=== PATIENT | male | born 1985 | race Caucasian/White ===

== ENCOUNTER 2016-12-05 15:21 | Emergency (ER) | payer SELFPAY ==
[~2016-12-05] VITALS: Ht 182.9 cm; Wt 85.3 kg
[2016-12-05] MEDS ORDERED: IBUPROFEN 600MG TABLET PO ONE (23:30)
[2016-12-06] VITALS: BP 132/90
== END 2016-12-06 | disposition home or self-care (01) ==
LOC: ER 20:45
DX: J33.9 Nasal polyp, unspecified (principal); F17.210 Nicotine dependence, cigarettes, uncomplicated
CPT/HCPCS: 99283

== ENCOUNTER 2016-12-25 07:33 | Emergency (ER) | payer SELFPAY ==
[~2016-12-25] VITALS: Ht 175.3 cm; Wt 80.0 kg
[2016-12-25 08:00] VITALS: BP 159/80
== END 2016-12-25 09:13 | disposition home or self-care (01) ==
LOC: ER 07:43
DX: L29.9 Pruritus, unspecified (principal); F15.10 Other stimulant abuse, uncomplicated
CPT/HCPCS: 99283; Z7610